=== PATIENT | female | born 1940 | race Caucasian/White ===

== ENCOUNTER 2018-02-13 09:11 | Day surgery (SDC) ==
[2018-02-13] MEDS: TETRACAINE 0.5% UNIT-DOSE OP PRN ×2 (11:01→11:27)
[2018-02-13] MEDS: BETADINE OPTH PREP OP PRN ×2 (11:01→11:27)
[2018-02-13] MEDS: CYCLOGYL 2% OPTH OP PRN ×3 (11:02→11:12)
[2018-02-13] MEDS ORDERED: ZOFRAN 4 MG/2 ML IVP ONE (11:13)
[2018-02-13] MEDS ORDERED: DEX-MOXI-KETOR OPTH INJ 1/0.5/0.4 MG/ML IO ONE (11:13)
[2018-02-13] MEDS ORDERED: LIDOCAINE 1%/PHENYLEPHRINE 1.5% BSS (SURGERY) INTRAOCULA ONE (11:13)
[2018-02-13] MEDS ORDERED: BSS WITH EPINEPHRINE OP ONE (11:13)
[2018-02-13] MEDS ORDERED: LIDOCAINE 1% 20 ML MDV ID STA (11:13)
[2018-02-13] MEDS ORDERED: BRIMONIDINE TARTRATE 0.2% OPTH SOL OP PRN (11:13)
[2018-02-13] MEDS ORDERED: VERSED ONE (11:30)
[2018-02-13] MEDS ORDERED: SUBLIMAZE ONE (11:30)
[2018-02-13 16:52] VITALS: TEMP 97.3
[2018-02-15 13:26] VITALS: BP 118/67
== END 2018-02-13 12:36 | disposition home or self-care (01) ==
LOC: SURG 09:11
PROVIDERS: ATTEND Ophthalmology
DX: H25.812 Combined forms of age-related cataract, left eye (principal)

== ENCOUNTER 2018-02-26 07:24 | Day surgery (SDC) ==
[2018-02-26] MEDS: TETRACAINE 0.5% UNIT-DOSE OP PRN ×2 (07:35→07:55)
[2018-02-26] MEDS: CYCLOGYL 2% OPTH OP PRN ×3 (07:35→07:45)
[2018-02-26] MEDS: BETADINE OPTH PREP OP PRN ×2 (07:35→07:55)
[2018-02-26 07:43] VITALS: TEMP 98.1
[2018-02-26] MEDS ORDERED: BSS WITH EPINEPHRINE OP ONE (07:44)
[2018-02-26] MEDS ORDERED: LIDOCAINE 1%/PHENYLEPHRINE 1.5% BSS (SURGERY) INTRAOCULA ONE (07:44)
[2018-02-26] MEDS ORDERED: DEX-MOXI-KETOR OPTH INJ 1/0.5/0.4 MG/ML IO ONE (07:44)
[2018-02-26] MEDS ORDERED: ZOFRAN 4 MG/2 ML IVP ONE (07:44)
[2018-02-26] MEDS ORDERED: BRIMONIDINE TARTRATE 0.2% OPTH SOL OP PRN (07:44)
[2018-02-26] MEDS ORDERED: LIDOCAINE 1% 20 ML MDV ID ONE (07:46)
[2018-02-26] MEDS ORDERED: LIDOCAINE 1% 20 ML MDV ID STA (07:51)
[2018-02-26] MEDS ORDERED: SUBLIMAZE ONE (08:05)
[2018-02-26] MEDS ORDERED: VERSED ONE (08:05)
[2018-02-26] MEDS ORDERED: ZOFRAN 4 MG/2 ML ONE (08:05)
[2018-02-26 11:52] VITALS: BP 122/67
== END 2018-02-26 10:15 | disposition home or self-care (01) ==
LOC: SURG 07:24
PROVIDERS: ATTEND Ophthalmology
DX: H25.811 Combined forms of age-related cataract, right eye (principal)